=== PATIENT | male | born 2000 | race Caucasian/White ===

== ENCOUNTER 2018-09-28 18:19 | Emergency (ER) | payer OTHER, SELFPAY ==
[2018-09-28 18:19] VITALS: BP 113/59; PULSE 53; RESP 16; TEMP 36.7; O2SAT 100; BMI 22.6
--- NOTE | 2018-09-28 18:29 | CT_ITS ---
HISTORY: RLQ pain. EXAMINATION: CT Abdomen And Pelvis W/ Contrast TECHNIQUE: Helically acquired images were obtained of the abdomen and pelvis following IV contrast. A radiation dose optimization technique was used for this scan. IV Contrast dosage and agent: 100ML Isovue 370 Oral contrast: None. COMPARISON: None FINDINGS: LOWER CHEST: Lung bases are clear. Partially visible heart mildly enlarged particularly the right atrium and right ventricle. LIVER: Homogeneous. No focal mass. GALLBLADDER AND BILIARY TREE: No calcified gallstones. There is no gallbladder distension or wall edema. No intra- or extrahepatic biliary ductal dilation. KIDNEYS AND URETERS: Normal renal size and position. There is no hydronephrosis. ADRENAL GLANDS: Non-enlarged. SPLEEN: Normal size without focal cystic or solid mass. PANCREAS: No focal cystic or solid mass. BOWEL: Normal appendix. No stomach or bowel distension. No focal inflammatory change observed. LYMPH NODES: No enlarged mesenteric or retroperitoneal lymph nodes. PERITONEUM: Trace fluid in the pelvis. No free air. VESSELS: Aorta is non-dilated. IVC distended. URINARY BLADDER: Unremarkable. REPRODUCTIVE ORGANS: No pelvic masses. ABDOMINAL WALL: No discrete abdominal or pelvic wall hernia observed. BONES: No lytic or blastic abnormality observed. CT/Abdomen/Pelvis WITH Contrast IMPRESSION: Normal appendix. No etiology for RLQ pain identified. Mild cardiac enlargement partially visible. Distention of the IVC could be physiologic although mild heart failure is possible. Please correlate with symptoms. Consider follow-up echocardiogram. Individualized dose optimization techniques were used for this CT. at 2049 Reported and signed by: Corky Jarrell MD Electronically Signed: Corky Jarrell, at 20:48 EDT Tel , Service support ,
[2018-09-28 18:34] VITALS: BP 133/80; PULSE 55; RESP 15; O2SAT 99
--- NOTE | 2018-09-28 18:38 | ED.DCSUM_ITS ---
- ER Visit Summary Date of Service: 09/28/18 Chief Complaint: Abdominal pain History of Present Illness: The patient is a 17 M presents to the emergency department abdominal pain. The patient symptoms are gone for the past 3 days. He is otherwise healthy. 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 He is on no daily medications. He states that he had a dull ache near his right lower quadrant that is worsened. He denies fevers. He is been nauseated without vomiting. He went to urgent care and was sent over for further evaluation. He states is worse when he moves or coughs. He denies any referred pain in his testicles. He had no trouble urinating. Physical Examination: Vital signs reviewed General: Well-nourished, well-developed Head: Normocephalic, atraumatic Eyes: Pupils equal and reactive, extraocular muscles intact Neck, supple, no lymphadenopathy Heart: Regular rate and rhythm Respiratory: No distress, clear bilaterally Abdomen: Soft, tender in the right lower quadrant without rebound or guarding, nondistended, no peritoneal signs Back: Nontender Extremities: Nontender, no edema, no cords Skin: Normal color no rash Neuro: Alert and oriented, no focal or lateralizing deficits Test Results: [] Emergency Department Course and Treatment: [The patient declined any analgesics on arrival. He was only mildly tender in the right lower quadrant. He has no testicular pain. He has no flank pain. Screening labs are obtained were unremarkable. The patient underwent CT imaging of his abdomen and pelvis with oral and IV contrast. His appendix is visualized and is normal. He does have some mild cardiomegaly, but in light of his ASD repair, I do not suspect this to be of any significance. There is some trace free fluid in his pelvis which may be reactive, but again no other dangerous process. At this time, I am unsure of the acute etiology of his pain. I do not suspect a dangerous process. I do feel that the patient is safe for outpatient therapy. He will be discharged home. Treatment Plan: [] Disposition: Discharge Impression: 1. Right lower quadrant abdominal pain This note was generated with [employer] dictation software. It may contain incorrect words, spelling, and punctuation that were not noted in review of the chart prior to signing ED Disposition - Plan for ED Patient: Instructions: ED Abdominal Pain Unkn Cause Referrals: Care Physician,No Primary [Primary Care Provider] -
[2018-09-28] MEDS: 0.9% Normal Saline 1,000 ML 1000 ML IV (18:44)
[2018-09-28] MEDS: Ondansetron 4 MG/2 ML Vial IV (18:45)
[2018-09-28 18:58] LABS: Absolute Lymphocyte Count 1.79 X10^3/ul (0.83-4.51); Absolute Neutrophil Count 5.6 X10^3/uL (2.0-7.7); Basophil# 0.02 X10^3/uL; Basophil% 0.2 % (0-1); Eosinophil# 0.13 X10^3/uL; Eosinophils% 1.6 % (0-5); Hematocrit 43.6 % (40-54); Hemoglobin 15.2 g/dl (13.0-16.5); Lymphocyte # 1.79 X10^3/ul (4.0); Lymphocyte % 21.9 % (19-41); Mean Corp Hgb Conc 34.9 g/gl (32-36); Mean Corpuscular Hgb 29.5 pg (27.0-32.0); Mean Corpuscular Volume 84.7 fL (80-94); Mean Platelet Vol. 9.6 fl (6.2-12.0); Monocyte# 0.58 X10^3/uL; Monocyte% 7.1 % (0-10); Neutrophil # 5.64 X10^3/uL (2.7-7.7); Neutrophil % 69.1 % (47-70); Platelet Count 219 K/mm3 (150-450); RBC Distribution Width CV 12.9 % (11.6-14.6); RBC Distribution Width SD 39.2 fl (35.1-43.9); Red Blood Count 5.15 M/mm3 (4.6-6.2); White Blood Count 8.2 K/mm3 (4.4-11.0)
[2018-09-28 18:59] LABS: POSITIVE COUNT NO; POSITIVE DIFFERENTIAL NO; POSITIVE MORPHOLOGY NO
[2018-09-28 19:13] LABS: ALB/GLOB Ratio 1.3 RATIO (0.9-2.4); AST(SGOT) 26 U/L (15-37); Alanine Aminotransfer ALT/SGPT 32 U/L (16-61); Albumin, Serum 4.4 g/dL (3.2-5.0); Alkaline Phosphatase 99 U/L (45-117); Anion Gap 5 (5-15); BUN 20 mg/dL (7-18); BUN/Creat Ratio 17.7 RATIO (10-20); Calcium,Total 8.5 mg/dL (8.5-10.1); Chloride 107 mmol/L (98-107); Creatinine, Serum 1.13 mg/dL (0.70-1.30); EST Glomerular Filtration Rate 88 mL/min (>60); Est Glom Filt Rate - Afr Amer 107 mL/min (>60); Estimated Creatinine Clearance 125.47 ml/min; Globulin 3.5 g/dL (2.2-4.2); Glucose 102 mg/dL (74-106); Lipase 135 U/L (73-393); Potassium 3.8 mmol/L (3.5-5.1); Protein, Total 7.9 g/dL (6.4-8.2); Sodium Level 139 mmol/L (136-145)
[2018-09-28 21:18] VITALS: BP 116/79; PULSE 97; RESP 18; O2SAT 97
[2018-09-28 21:19] VITALS: PULSE 97
== END 2018-09-28 21:19 | disposition home or self-care (01) ==
LOC: ED 18:49
PROVIDERS: Emergency Provider Emergency Medicine
DX: R10.31 Right lower quadrant pain (principal); R11.0 Nausea; I51.7 Cardiomegaly
CPT/HCPCS: 74177; 80053; 83690; 85025; 96361; 96374; 99283; J7030; Q9967; A4216; J2405

== ENCOUNTER 2019-07-25 13:36 | Emergency (ER) | payer OTHER, SELFPAY ==
[2019-07-25 13:38] VITALS: BP 117/68; PULSE 52; RESP 17; TEMP 36; O2SAT 100; BMI 23.6
--- NOTE | 2019-07-25 14:58 | EKG12_ITS ---
Test Reason : CP Blood Pressure : / mmHG Vent. Rate : 041 BPM Atrial Rate : 041 BPM P-R Int : 136 ms QRS Dur : 102 ms QT Int : 470 ms P-R-T Axes : 003 041 008 degrees QTc Int : 387 ms Marked sinus bradycardia Abnormal ECG Confirmed by DEMI RÍOS, AMARIS ([id number]), deputy editor in chief LETICIA GAMA ([id number]) on 07/30/2019 8:01:36 AM Referred By: WINNIE/LOYDA Confirmed By:AMARIS ISMMS MD
--- NOTE | 2019-07-25 15:00 | RAD_ITS ---
STUDY: X-RAY CHEST REASON FOR EXAM: Male, 18 years old. PAIN IN RIGHT UPPER CHEST AREA STARTED X 2 WEEKS AGO. TECHNIQUE: PA and lateral views of the chest. COMPARISON: None. FINDINGS: The lungs are clear and expanded. There is no demonstrated pleural abnormality. Sternal cerclage wires are present from a prior sternotomy. Normal mediastinum and mirtha. Normal visualized pulmonary arteries. Normal visualized aortic arch and descending thoracic aorta. Normal visualized thoracic spine. Normal visualized ribs, clavicles, and shoulders. There is no demonstrated abnormality of the visualized soft tissue structures of the upper abdomen. RAD/Chest PA and Lateral IMPRESSION: Normal x-ray examination of the chest. Electronically Signed: Chino Nicole, at 15:36 EST , Service support ,
--- NOTE | 2019-07-25 16:23 | ED.VISSUMM ---
- ER Visit Summary Date of Service: 07/25/19 Chief Complaint: Right sided chest pain History of Present Illness: The patient is a 18 M past medical history of cardiothoracic surgery as a small child for an ASD closure. Patient last 2 weeks has had right-sided chest pain. Denies any falls or injuries. States it is dull aching at times sharp. No history of pneumothorax. The pain is made worse with movement. He is not short of breath. He denies any fever or cough. No hemoptysis. No leg pain or swelling. No prior history of DVT or PE. No recent travel, surgery or immobilization. No family history of clotting disorder. Physical Examination: Young male no acute distress vital signs stable afebrile. Pulse ox are percent on room air no signs hypoxia. Heart rate 52. H EENT exam unremarkable. Neck nontender no JVD. Lungs clear to auscultation bilaterally. Equal symmetrical. No rales, rhonchi or wheezing. Chest wall there is really no significant reproducible tenderness to his chest wall. If he rotates about his trunk he does have some discomfort on the right. There is no ecchymosis or bruising. No subcu air or crepitance. Heart is regular rhythm rate about 55 no murmur. Abdomen is soft and nontender normal bowel sounds no peritoneal signs. Patient is moving all 4 extremities. Neurovascularly intact. Equal symmetrical radial pulse. Calves are nontender without edema or cords. Normal range of motion. Back nontender. Neurologically is awake and alert with no focal motor deficits. Test Results: Chest x-ray AP lateral view shows no acute abnormality. Read both myself and the radiologist. Normal cardiac silhouette. Normal mediastinum. No infiltrate. No pneumothorax. No gross bony abnormalities. No effusion. EKG shows a sinus bradycardia rate of 41 with no acute signs of CA or ischemia. Emergency Department Course and Treatment: Patient has right-sided chest pain I think is musculoskeletal etiology. He did not have a specific injury but made worse with movement. He has absolutely no risk factors for PE. There is no signs of this being a pneumothorax on chest x-ray or exam. Treatment Plan: Motrin for pain. Follow-up if not improving. Return if worse. Disposition: Discharge Impression: Right chest pain secondary to musculoskeletal etiology This note was generated with [employer] software. It may contain incorrect words, spelling, and punctuation that were not noted in review of the chart prior to signing ED Disposition - Plan for ED Patient: Referrals: Care Physician,No Primary [Primary Care Provider] -
--- NOTE | 2019-07-25 16:26 | ED.DEP ---
ED Disposition - Plan for ED Patient: Disposition: Home or Assisted Living Instructions: Chest Wall Strain Referrals: Mark Busby MD [STAFF PHYSICIAN] - 1 Week if not improving Additional Instructions: Motrin Tylenol for pain. This should progressively start feeling better. It appears to be musculoskeletal pain. If this is not getting better you need to follow-up for repeat examination. If you are feeling worse or develop shortness of breath return to the ER. Your chest x-ray and EKG today were both unremarkable.
[2019-07-25 16:53] VITALS: BP 124/65; PULSE 46; RESP 14; O2SAT 99
== END 2019-07-25 16:54 | disposition home or self-care (01) ==
PROVIDERS: Emergency Provider Emergency Medicine
DX: R07.89 Other chest pain (principal)
CPT/HCPCS: 71046; 93005; 99282

== ENCOUNTER 2021-03-21 11:01 | Emergency (ER) | payer BC, SELFPAY ==
[2021-03-21 11:02] VITALS: BP 137/71; PULSE 59; RESP 16; TEMP 36.8; O2SAT 98; BMI 25.5
[2021-03-21] MEDS: 0.9% Normal Saline 1,000 ML 999 ML IV (11:50)
[2021-03-21 11:53] LABS: Absolute Lymphocyte Count 1.63 X10^3/uL (0.83-4.51); Absolute Neutrophil Count 6.9 X10^3/uL (2.0-7.7); Basophil# 0.04 X10^3/uL; Basophil% 0.4 % (0-1); Eosinophil# 0.02 X10^3/uL; Eosinophils% 0.2 % (0-5); Hematocrit 44.7 % (40-54); Lymphocyte # 1.63 X10^3/ul (0.83-4.51); Lymphocyte % 17.7 % (19-41); Mean Corp Hgb Conc 33.6 g/dL (32-36); Mean Corpuscular Hgb 29.1 pg (27.0-32.0); Mean Corpuscular Volume 86.8 fL (80-94); Mean Platelet Vol. 9.1 fl (6.2-12.0); Monocyte# 0.57 X10^3/uL; Monocyte% 6.2 % (0-10); NRBC Flagged by Analyzer 0 % (0-5); Neutrophil # 6.86 X10^3/uL (2.7-7.7); Neutrophil % 74.6 % (47-70); Platelet Count 211 K/mm3 (150-450); RBC Distribution Width CV 12.9 % (11.6-14.6); RBC Distribution Width SD 40.8 fl (35.1-43.9); Red Blood Count 5.15 M/mm3 (4.6-6.2); White Blood Count 9.2 K/mm3 (4.4-11.0)
[2021-03-21 12:05] LABS: Anion Gap 9 (5-15); BUN 11 mg/dL (7-18); BUN/Creat Ratio 11.1 RATIO (10-20); Calcium,Total 9.1 mg/dL (8.5-10.1); Chloride 105 mmol/L (98-107); Creatinine, Serum 0.99 mg/dL (0.70-1.30); EST Glomerular Filtration Rate 100 mL/min (>60); Est Glom Filt Rate - Afr Amer 121 mL/min (>60); Estimated Creatinine Clearance 143.69 ml/min; Glucose 75 mg/dL (74-106); Magnesium 2.2 mg/dL (1.6-2.6); Sodium Level 139 mmol/L (136-145)
--- NOTE | 2021-03-21 13:51 | EDS_ITS ---
HPI History of Present Illness Chief Complaint: General Illness Narrative Narrative: Patient is a 20-year-old male with no significant past medical or surgical history. He states he was drinking all day yesterday. He states he did not eat or drink any fluids other than alcohol. He states he awoke this morning with generalized abdominal discomfort and feeling just unwell. He is concerned he has become dehydrated and secondary to this comes in for evaluation [facility] Medical History Congenital heart defect Home Medications NK 09/28/18 [History Last Taken Unknown] Allergy/AdvReac Type Severity Reaction Status Date / Time No Known Allergies Allergy Verified 03/21/21 11:04 Social History Smoking Status: Never smoker ROS ROS ED Constitutional Constitutional ED: Denies chills or fever(s) ENT ENT ED: Denies sore throat Cardiovascular Cardiovascular: Denies chest pain Respiratory/Chest Respiratory/Chest: Denies cough or dyspnea Gastrointestinal Gastrointestinal: Reports nausea; Denies abdominal pain, diarrhea or vomiting Genitourinary Genitourinary ED: Denies dysuria Musculoskeletal Musculoskeletal: Denies myalgias Integumentary Denies rash Neurologic Neurologic: Reports weakness; Denies headache(s) Hematologic/Lymphatic Hematologic/Lymphatic: Denies easy bleeding or easy bruising EXAM Physical Exam Const Vital Signs: 03/21/21 11:02 03/21/21 11:52 Temperature 98.2 F Temperature Source Oral Pulse Rate 59 L Respiratory Rate 16 Respiratory Effort Normal Non-Labored Blood Pressure 137/71 H Blood Pressure Mean 93 Pulse Ox 98 Oxygen Delivery Method Room Air Positive well nourished and well developed General Appearance ED: well developed HEENT Reports moist mucous membranes Eyes PERRL and EOMs intact bilaterally Neck supple Resp normal respiratory effort and clear to auscultation bilaterally Cardio regular rate and regular rhythm GI normal to inspection, nondistended, normoactive bowel sounds, non-tender and non-distended Auscultation: normoactive bowel sounds Palpation: soft Extremity normal to inspection Neuro oriented x3 and CN's II-XII intact bilaterally Sensorium / Orientation: alert Psych mental status grossly normal Skin no rashes or lesions noted Skin Narrative: Skin turgor is normal MDM MDM MDM Narrative Medical decision making narrative: Patient presented to the ER with stable vitals and a soft nonsurgical abdomen. Clinically he did not present with dehydration changes with based on his history there was concern for this. Basic labs were obtained and patient was given 1 L of fluid. His labs revealed no clinically significant findings and after hydration he did report feeling better. Therefore with negative work-up persistently nonsurgical abdomen and improvement of symptoms with hydration patient is safe for discharge Lab Data Labs: Laboratory Results - last 24 hr 03/21/21 03/21/21 11:50 11:50 WBC 9.2 RBC 5.15 Hgb 15.0 Hct 44.7 MCV 86.8 MCH 29.1 MCHC 33.6 RDW Std Deviation 40.8 RDW Coeff of Shamir 12.9 Plt Count 211 MPV 9.1 Immature Gran % (Auto) 0.900 Neut % (Auto) 74.6 H Lymph % (Auto) 17.7 L Wright % (Auto) 6.2 Eos % (Auto) 0.2 Baso % (Auto) 0.4 Absolute Neuts (auto) 6.9 Absolute Lymphs (auto) 1.63 Nucleated RBC % 0 Sodium 139 Potassium 4.0 Chloride 105 Carbon Dioxide 25.0 Anion Gap 9 BUN 11 Creatinine 0.99 Estim Creat Clear Calc 143.69 Est GFR (MDRD) Af Amer 121 Est GFR (MDRD) Non-Af 100 BUN/Creatinine Ratio 11.1 Glucose 75 Calcium 9.1 Magnesium 2.2 Discharge Plan Triage Chief Complaint: General Illness ED Provider: Alireza Hallman Dx/Rx/DC Orders Clinical Impression: Mild dehydration Instructions: Dehydration Prescriptions: No Action NK RF: 0 Primary Care Provider: Care Physician,No Primary Referrals: Amber Ponce MD [STAFF PHYSICIAN] - 3-5 Days if not improving Care Physician,No Primary [Primary Care Provider] - Disposition Disposition: Home, Self Care
[2021-03-21 14:10] VITALS: BP 135/76; PULSE 63; RESP 16; O2SAT 99
== END 2021-03-21 14:11 | disposition home or self-care (01) ==
PROVIDERS: Emergency Provider Emergency Medicine
DX: E86.0 Dehydration (principal)
CPT/HCPCS: 80048; 83735; 85025; 99285; A4216